=== PATIENT | male | born 1990 | race Caucasian/White ===

== ENCOUNTER 2021-02-16 02:49 | Emergency (ER) | payer MEDICAID ==
[~2021-02-16] VITALS: Ht 177.8 cm; Wt 57.5 kg
[2021-02-16 03:00] VITALS: BP 117/81
[2021-02-16] MEDS ORDERED: acetaminophen 325mg tablet PO ONE (04:15)
== END 2021-02-16 04:49 | disposition home or self-care (01) ==
LOC: ER 02:51
DX: R10.13 Epigastric pain (principal); R10.11 Right upper quadrant pain; R10.9 Unspecified abdominal pain; R11.10 Vomiting, unspecified; R25.2 Cramp and spasm; R07.81 Pleurodynia; F10.129 Alcohol abuse with intoxication, unspecified; Z72.89 Other problems related to lifestyle; Y90.9 Presence of alcohol in blood, level not specified
CPT/HCPCS: 99283